=== PATIENT | male | born 1955 | race Caucasian/White ===

== ENCOUNTER 2018-06-08 11:18 | Emergency (ER) | payer MEDICAID, OTHER ==
--- NOTE | 2018-06-08 11:39 | EDPHY ---
HPI/HX/ROS/PE/MDM Narrative: CHIEF COMPLAINT: Dizziness, headache HPI: The patient is a 62 y/o male with a history of VT and implanted AICD arriving with his family member complaining of persistent dizziness and headache since a syncopal event one week ago in which he struck his head and his AICD fired. At that time he believes he passed out, fell onto concrete, and then was unconscious for abut 30 minutes before his AICD fired. He was evaluated at [facility] ED and was "checked for a heart attack and stroke, " but did not have any neuroimaging per patient or his family member. Since then , when transitioning to lying down or getting up he feels a disorienting dizziness, darkening vision, and headache. He says, "I just feel slower" and has to concentrate hard to follow conversation. His family member describes difficulty balancing and walking "pigeon-toed" since the head injury. He mentions this morning when blowing his nose he felt something drain out of his left ear. He also mentions both shoulders hurt, but he attributes this to the shock from his AICD. REVIEW OF SYSTEMS: A comprehensive 10 system review of systems is otherwise negative aside from elements mentioned in the history of present illness. PMH: History of VT with AICD SOCIAL HISTORY: Family member at bedside. Lives in [place]. Retired. 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 PHYSICAL EXAM: General:Patient is alert, in no acute distress. ENT:Eyes are normal to inspection. Left TM: no erythema, small amount of fluid behind membrane. ENT inspection otherwise normal. Neck: Normal inspection. Full range of motion. Respiratory:No respiratory distress. Breath sounds normal bilaterally. Cardiovascular: Regular rate and rhythm. Strong peripheral pulses. Normal cap refill. Abdomen:The abdomen is nontender to palpation. There are no peritoneal signs. Back: Normal to inspection. No tenderness to palpation. Skin: Normal color. No rash. Warm and dry. Extremities: Normal appearance. Full range of motion. Neuro: Oriented x3. Normal motor function. Normal sensory function. Subtle droop left corner of mouth when talking. ED Course: This is a 62 y/o male with a history of VT with implanted AICD who presents one week after a syncopal event in which he fell and struck the back of his head and subsequently his AICD fired. Since the event, he has experienced persistent dizziness, cognitive difficulty, and headache. It does not sound like he had neuroimaging performed when he was evaluated at [facility]'s ED last week. He has slightly left mouth droop while speaking and some fluid behind his left TM, otherwise nonfocal exam. Presentation could represent post-concussive symptoms, but intracranial hemorrhage or other injury pattern must be excluded. Plan for IV, labs, EKG, head CT. The 12 lead EKG was interpreted by myself. Sinus mechanism. See hard copy and/ or "tracemaster" electronic copy for interpretation. Head CT: possible frontal contusion. Due to pacemaker, patient is not a candidate for MRI. Head and neck CTAs ordered. Head CTA shows non-displaced hairline temporal bone fracture on the left side not involving the sigmoid sinus per Dr. Hood. Neurosurgery paged. 1407: Consulted with Dr. Alberto, neurosurgery. Patient can follow up in his clinic regarding head injury symptoms and possible frontal contusion. He recommends consulting with ENT regarding fracture. 1443: Consulted with Ann Marie from [facility] ENT. They recommend outpatient follow up in their office within one week. Reassessed patient and discussed recommendations. He is comfortable with plan for follow up. Standard care instructions and return precautions discussed. - Data Points Imaging Results: Imaging Impressions Head CT 06/08/18 11:38 Impression: Questionable white matter asymmetry in the right subfrontal cortex ( a mild contrecoup contusion or subtle infarct cannot be excluded, given the patient's prior history of trauma/cardiac issues). Because the patient has an AICD pacemaker, he is not a candidate for MR imaging. Findings were discussed with Angelo Leonardo MD at 12:32, on 06/08/2018. Head CTA 06/08/18 12:42 Impression: 1. Normal CT angiogram of the head and neck. 2. Small amount of fluid within the left mastoid air cells with nondisplaced hairline fracture of the posterior temporal bone. No definite involvement of the sagittal sinus. Stenoses are calculated using [place] Symptomatic Carotid Endarterectomy Trial (NASCET) criteria. Findings and recommendations discussed with Angelo Leonardo MD at 1350 hour, 06/08/2018. Neck CTA 06/08/18 12:42 Impression: 1. Normal CT angiogram of the head and neck. 2. Small amount of fluid within the left mastoid air cells with nondisplaced hairline fracture of the posterior temporal bone. No definite involvement of the sagittal sinus. Stenoses are calculated using [place] Symptomatic Carotid Endarterectomy Trial (NASCET) criteria. Findings and recommendations discussed with Angelo Leonardo MD at 1350 hour, 06/08/2018. Imaging: Discussed imaging studies w/ rn call center Radiologist, I viewed and interpreted images myself Laboratory Results: Laboratory Results 06/08/18 11:40 06/08/18 11:40 06/08/18 06/08/18 06/08/18 11:40 11:40 11:40 WBC 8.53 10^3/uL 10^3/uL (3.80-9.50) RBC 5.26 10^6/uL 10^6/uL (4.40-6.38) Hgb 16.0 g/dL g/dL (13.7-17.5) Hct 46.9 % % (40.0-51.0) MCV 89.2 fL fL (81.5-99.8) MCH 30.4 pg pg (27.9-34.1) MCHC 34.1 g/dL g/dL (32.4-36.7) RDW 12.3 % % (11.5-15.2) Plt Count 217 10^3/uL 10^3/uL (150-400) MPV 10.4 fL fL (8.7-11.7) Neut % (Auto) 61.1 % % (39.3-74.2) Lymph % (Auto) 29.3 % % (15.0-45.0) [place] % (Auto) 6.1 % % (4.5-13.0) Eos % (Auto) 1.9 % % (0.6-7.6) Baso % (Auto) 1.2 % % (0.3-1.7) Nucleat RBC Rel Count 0.0 % % (0.0-0.2) Absolute Neuts (auto) 5.22 10^3/uL 10^3/uL (1.70-6.50) Absolute Lymphs (auto) 2.50 10^3/uL 10^3/uL (1.00-3.00) Absolute Monos (auto) 0.52 10^3/uL 10^3/uL (0.30-0.80) Absolute Eos (auto) 0.16 10^3/uL 10^3/uL (0.03-0.40) Absolute Basos (auto) 0.10 10^3/uL 10^3/uL (0.02-0.10) Absolute Nucleated RBC 0.00 10^3/uL 10^3/uL (0-0.01) Immature Gran % 0.4 % % (0.0-1.1) Immature Gran # 0.03 10^3/uL 10^3/uL (0.00-0.10) PT 14.0 SEC SEC (12.0-15.0) INR 1.06 (0.83-1.16) APTT 30.0 SEC SEC (23.0-38.0) Sodium 139 mEq/L mEq/L (135-145) Potassium 4.5 mEq/L mEq/L (3.5-5.2) Chloride 105 mEq/L mEq/L (97-110) Carbon Dioxide 25 mEq/l mEq/l (22-31) Anion Gap 9 mEq/L mEq/L (6-14) BUN 19 mg/dL mg/dL (7-23) Creatinine 0.9 mg/dL mg/dL (0.7-1.3) Estimated GFR > 60 Glucose 99 mg/dL mg/dL (70-100) Calcium 9.8 mg/dL mg/dL (8.5-10.4) General Time Seen by Provider: 06/08/18 11:21 Initial Vital Signs: Initial Vital Signs Temperature (C) 36.7 C 06/08/18 11:20 Heart Rate 65 06/08/18 11:20 Respiratory Rate 16 06/08/18 11:20 Blood Pressure 151/82 H 06/08/18 11:20 O2 Sat (%) 96 06/08/18 11:20 O2 Delivery Mode Room Air Allergies/Adverse Reactions: No Known Allergies Allergy (Verified 06/08/18 11:22) Home Medications: Medication Instructions Recorded NK [No Known Home Meds] 06/08/18 Departure - Departure Disposition: Home, Routine, Self-Care Clinical Impression: Brain contusion Qualifiers: Encounter type: initial encounter Loss of consciousness presence/duration: with LOC of unspecified duration Qualified Code(s): S06.2X9A - Diffuse traumatic brain injury with loss of consciousness of unspecified duration, initial encounter Condition: Good Instructions: Post Concussion Syndrome (ED) Additional Instructions: Follow up with ENT in the next week without fail. Follow up with neurosurgery in the next 1-2 weeks for any persistent unimproved concussive symptoms. Return to the ED for any worsening of condition. Referrals: Abhay Alberto MD [Medical Doctor] - As per Instructions Angelo Forbes MD [Medical Doctor] - As per Instructions Report Scribed for: Angelo Leonardo Report Scribed by: Ruth Dickson Date of Report: 06/08/18 Time of Report: 12:28 Physician Review and Approval Statement: Portions of this note were transcribed by an ED scribe. I personally performed the history, physical exam, and medical decision making; and confirm the accuracy of the information in the transcribed note.
[2018-06-08 12:00] LABS: PLATELET COUNT 217 10^3/uL (150-400)
[2018-06-08 12:08] LABS: INR 1.06 (0.83-1.16)
[2018-06-08] MEDS ORDERED: IOPAMIDOL (ISOVUE 370) 100 ML BTL IV ONE (12:59)
[2018-06-08 15:07] VITALS: BP 136/78
--- NOTE | 2018-06-11 10:52 | CPEKG ---
Test Reason : OPEN Blood Pressure : / mmHG Vent. Rate : 060 BPM Atrial Rate : 060 BPM P-R Int : 175 ms QRS Dur : 183 ms QT Int : 496 ms P-R-T Axes : 066 -67 126 degrees QTc Int : 496 ms Atrial-sensed ventricular-paced rhythm Confirmed by Angelo Leonardo ([id number]) on 06/11/2018 10:52:16 AM Referred By: Confirmed By:Angelo Leonardo
== END 2018-06-08 15:07 | disposition home or self-care (01) ==
DX: S06.2X9A Diffuse traumatic brain injury with loss of consciousness of unspecified duration, initial encounter (principal); I47.2 Ventricular tachycardia; Z95.810 Presence of automatic (implantable) cardiac defibrillator; W19.XXXA Unspecified fall, initial encounter; Y92.89 Other specified places as the place of occurrence of the external cause; Y93.9 Activity, unspecified; Y99.9 Unspecified external cause status
CPT/HCPCS: Q9967